=== PATIENT | male | born 1960 | race African-American/Black ===

== ENCOUNTER 2017-04-13 14:37 | Emergency (ER) | payer SELFPAY ==
[~2017-04-13] VITALS: Ht 175.3 cm; Wt 75.0 kg
[2017-04-13] MEDS ORDERED: ACETAMINOPHEN 325MG TABLET PO ONE (18:15)
[2017-04-13 18:22] VITALS: BP 129/86
== END 2017-04-13 19:10 | disposition left against medical advice (07) ==
LOC: ER 15:44
DX: M54.2 Cervicalgia (principal); M54.89 Other dorsalgia; R07.81 Pleurodynia; Y93.89 Activity, other specified; Y35.893A Legal intervention involving other specified means, suspect injured, initial encounter; Y92.9 Unspecified place or not applicable; Z59.0 Homelessness; Z87.81 Personal history of (healed) traumatic fracture
CPT/HCPCS: 99283

== ENCOUNTER 2019-05-16 08:58 | Emergency (ER) | payer SELFPAY ==
[~2019-05-16] VITALS: Ht 167.6 cm; Wt 70.0 kg
[2019-05-16 09:05] VITALS: BP 115/82
== END 2019-05-16 10:14 | disposition left against medical advice (07) ==
LOC: ER 08:58
DX: Z53.21 Procedure and treatment not carried out due to patient leaving prior to being seen by health care provider (principal)

== ENCOUNTER 2021-03-31 16:16 | Emergency (ER) | payer SELFPAY ==
[~2021-03-31] VITALS: Ht 172.7 cm; Wt 66.0 kg
[2021-03-31] MEDS ORDERED: TRAMADOL 50MG TABLET PO ONE (16:45)
[2021-03-31] MEDS ORDERED: ACETAMINOPHEN 325MG TABLET PO ONE (16:45)
[2021-03-31 17:21] VITALS: BP 105/69
[2021-03-31] MEDS ORDERED: TETANUS, DIPHTHERIA, PERTUSSIS VAC/PF 0.5ML (>7YR OLD) IM ONE (19:45)
== END 2021-03-31 21:11 | disposition left against medical advice (07) ==
LOC: ER 16:16
DX: S62.102A Fracture of unspecified carpal bone, left wrist, initial encounter for closed fracture (principal); F41.9 Anxiety disorder, unspecified; K59.00 Constipation, unspecified; F32.9 Major depressive disorder, single episode, unspecified; F20.9 Schizophrenia, unspecified; Y08.89XA Assault by other specified means, initial encounter; Y93.89 Activity, other specified; Y92.89 Other specified places as the place of occurrence of the external cause; Y99.8 Other external cause status
CPT/HCPCS: 29105; 73090; 73110; 99284

== ENCOUNTER 2021-07-15 14:36 | Emergency (ER) | payer SELFPAY ==
[~2021-07-15] VITALS: Ht 172.7 cm; Wt 73.0 kg
[2021-07-15 14:40] VITALS: BP 142/88
[2021-07-15 16:08] LABS: CLARITY URINE CLEAR (CLEAR); COLOR URINE YELLOW (YELLOW); KETONES URINE TRACE (NEGATIVE); LEUKOCYTE ESTERASE URINE NEGATIVE (NEGATIVE); NITRITE URINE NEGATIVE (NEGATIVE); OCCULT BLOOD URINE NEGATIVE (NEGATIVE); PH URINE 6.5 (4.5-8.0); PROTEIN URINE NEGATIVE (NEGATIVE); SPECIFIC GRAVITY URINE 1.021 (1.005-1.030)
[2021-07-15 16:12] LABS: BASOPHILS % 0.4 % (0.0-2.0); EOSINOPHILS % 1.7 % (0.0-5.0); HEMATOCRIT. 42.3 % (42.0-52.0); HEMOGLOBIN. 13.8 g/dL (14.0-18.0); LYMPHOCYTES % 35.8 % (20.0-50.0); MEAN CORPUSCULAR HEMOGLOBIN 27.3 pg (28.0-32.0); MEAN PLATELET VOLUME 7.8 fl (7.4-10.4); MONOCYTES % 8.8 % (2.0-8.0); NEUTROPHILS % 53.3 % (40.0-76.0); PLATELET 239 x1000/uL (130-400); RED BLOOD CELL COUNT 5.04 mill/uL (4.7-6.1); RED CELL DISTRIBUTION WIDTH 16.8 % (11.6-14.6)
[2021-07-15 16:17] LABS: CHLORIDE 107 mEq/L (98-107)
[2021-07-15 16:18] LABS: *AMPHETAMINES SCREEN URINE PRESUMTIVE POSITIVE (NEGATIVE); *BARBITURATES SCREEN URINE NEGATIVE (NEGATIVE); *BENZODIAZEPINES SCREEN URINE NEGATIVE (NEGATIVE); *COCAINE SCREEN URINE PRESUMTIVE POSITIVE (NEGATIVE); METHADONE URINE SCREEN NEGATIVE (NEGATIVE); OPIATES URINE SCREEN NEGATIVE (NEGATIVE)
[2021-07-15 16:19] LABS: CANNABINOID URINE SCREEN PRESUMTIVE POSITIVE (NEGATIVE); PHENCYCLIDINE URINE SCREEN NEGATIVE (NEGATIVE)
[2021-07-15 16:20] LABS: PROTHROMBIN TIME 10.6 sec (9.6-11.0)
[2021-07-15 16:21] LABS: ETHANOL BLOOD < 10 mg/dL
[2021-07-15] MEDS ORDERED: KETOROLAC 60MG/2ML VIAL IM ONE (16:45)
== END 2021-07-15 16:45 | disposition left against medical advice (07) ==
LOC: ER 14:36
DX: R10.2 Pelvic and perineal pain (principal); F15.129 Other stimulant abuse with intoxication, unspecified; F14.129 Cocaine abuse with intoxication, unspecified; F12.10 Cannabis abuse, uncomplicated; F41.9 Anxiety disorder, unspecified; M19.90 Unspecified osteoarthritis, unspecified site; F20.9 Schizophrenia, unspecified; F32.A Depression, unspecified
CPT/HCPCS: 36415; 80053; 80305; 80320; 81003; 85025; 99283; G0480

== ENCOUNTER 2022-06-07 12:56 | Emergency (ER) | payer MEDICAID, OTHER ==
[~2022-06-07] VITALS: Ht 175.3 cm; Wt 68.0 kg
[2022-06-07 15:22] LABS: BASOPHILS % 0.3 % (0.0-2.0); EOSINOPHILS % 2.7 % (0.0-5.0); HEMATOCRIT. 41.4 % (42.0-52.0); HEMOGLOBIN. 13.2 g/dL (14.0-18.0); MEAN CORPUSCULAR HEMOGLOBIN 26.6 pg (28.0-32.0); MEAN CORPUSCULAR VOLUME 83.5 fL (80.0-94.0); MONOCYTES % 11.9 % (2.0-8.0); NEUTROPHILS % 46.1 % (40.0-76.0); PLATELET 229 x1000/uL (130-400); RED BLOOD CELL COUNT 4.96 mill/uL (4.7-6.1); RED CELL DISTRIBUTION WIDTH 16.9 % (11.6-14.6)
[2022-06-07 15:23] LABS: CHLORIDE 107 mEq/L (98-107)
[2022-06-07 15:45] LABS: CLARITY URINE CLEAR (CLEAR); COLOR URINE YELLOW (YELLOW); KETONES URINE 1+ (NEGATIVE); LEUKOCYTE ESTERASE URINE NEGATIVE (NEGATIVE); NITRITE URINE NEGATIVE (NEGATIVE); OCCULT BLOOD URINE NEGATIVE (NEGATIVE); PH URINE 5.5 (4.5-8.0); PROTEIN URINE NEGATIVE (NEGATIVE); SPECIFIC GRAVITY URINE 1.027 (1.005-1.030)
[2022-06-07 16:07] LABS: *AMPHETAMINES SCREEN URINE PRESUMTIVE POSITIVE (NEGATIVE); *BARBITURATES SCREEN URINE NEGATIVE (NEGATIVE); *BENZODIAZEPINES SCREEN URINE NEGATIVE (NEGATIVE); *COCAINE SCREEN URINE PRESUMTIVE POSITIVE (NEGATIVE); CANNABINOID URINE SCREEN PRESUMTIVE POSITIVE (NEGATIVE); METHADONE URINE SCREEN NEGATIVE (NEGATIVE); OPIATES URINE SCREEN NEGATIVE (NEGATIVE); PHENCYCLIDINE URINE SCREEN NEGATIVE (NEGATIVE)
[2022-06-07] MEDS ORDERED: POLY17PO3 MT (16:15)
[2022-06-07] MEDS ORDERED: LACT1CAP78 MT (16:15)
[2022-06-07 16:35] VITALS: BP 146/91
[2022-06-11 04:08] LABS: NEISSERIA GONORRHOEAE NAA Negative (Negative)
== END 2022-06-07 16:37 | disposition home or self-care (01) ==
LOC: ER 14:02
DX: N40.1 Benign prostatic hyperplasia with lower urinary tract symptoms (principal); R39.11 Hesitancy of micturition; K59.00 Constipation, unspecified; F41.9 Anxiety disorder, unspecified; F20.9 Schizophrenia, unspecified; M19.90 Unspecified osteoarthritis, unspecified site; F12.10 Cannabis abuse, uncomplicated; Z87.891 Personal history of nicotine dependence
CPT/HCPCS: 36415; 74176; 80053; 80305; 81003; 85025; 87491; 87591; 99284

== ENCOUNTER 2025-07-26 12:16 | Emergency (ER) | payer MEDICAID ==
[~2025-07-26] VITALS: Ht 175.3 cm; Wt 77.0 kg
[~2025-07-26 12:16] MED LIST: LACT1CAP78 MT; POLY17PO3 MT
[2025-07-26 12:33] VITALS: O2SAT 99
[2025-07-26 12:57] VITALS: BP 128/90; PULSE 55; RESP 18; TEMP 36.8; O2SAT 100
[2025-07-26] MEDS: ACETAMINOPHEN 325MG TABLET PO ONE (14:00)
== END 2025-07-26 14:15 | disposition home or self-care (01) ==
LOC: ER 12:48
DX: M79.605 Pain in left leg (principal); M79.604 Pain in right leg; F41.9 Anxiety disorder, unspecified; F12.90 Cannabis use, unspecified, uncomplicated; M19.90 Unspecified osteoarthritis, unspecified site; F32.A Depression, unspecified; F20.9 Schizophrenia, unspecified; Z79.899 Other long term (current) drug therapy
CPT/HCPCS: 99282